=== PATIENT | male | born 1950 | race African-American/Black ===

== ENCOUNTER 2017-11-02 16:39 | Emergency (ER) | payer OTHER ==
[2017-11-02] MEDS ORDERED: ONDANSETRON 4 MG/2 ML VIAL ONE ×2 (18:12→21:21)
[2017-11-02] MEDS ORDERED: NA CHLORIDE 0.9% 500 ML ONE (18:12)
[2017-11-02 18:26] LABS: Absolute Lymphocytes (CBC) 0.7 K/uL (0.7-4.9); Absolute Monocytes 0.7 K/uL (0.1-1.3); Absolute Neutrophil 14.3 K/uL (1.8-8.0); Basophils % 0.2 % (0-1.3); Hematocrit 44.3 % (39.6-49.0); Lymphocytes % 4.2 % (15.3-44.8); MCH 31.5 pg (27.0-35.0); MCV 96.1 fL (80-100); MPV 9.3 fL (7.6-11.3); Monocytes % 4.4 % (3.3-12.3); RBC Red Blood Cell Count 4.61 M/uL (4.33-5.43)
[2017-11-02 18:28] LABS: Potassium 4.1 mEq/L (3.6-5.0)
[2017-11-02 18:35] LABS: Albumin 4.7 g/dL (3.2-5.5); Bilirubin Direct 0.1 mg/dL (0-0.2); Bilirubin Total 1.1 mg/dL (0.3-1.2); Protein, Total 7.9 g/dL (6.0-8.3)
[2017-11-02 20:05] LABS: Anisocytosis 1+; Blood Morphology Comment NOTED (NOT SEEN); Platelet Estimate ADEQ
--- NOTE | 2017-11-02 20:17 | RAD REPORT ---
EXAM DESCRIPTION: CT - Abdomen Pelvis W Contrast - 11/02/2017 8:00 pm CLINICAL HISTORY: Abdominal pain, nausea, vomiting, left lower quadrant pain COMPARISON: None. TECHNIQUE: Biphasic, helical CT imaging of the abdomen and pelvis was performed following 100 ml non -ionic IV contrast. Oral contrast was given. All CT scans are performed using dose optimization technique as appropriate and may include automated exposure control or mA/KV adjustment according to patient size. FINDINGS: No consolidation or mass. Interstitial markings are mildly prominent in the posterior gutt er on the right. A minimal interstitial edema or infiltrate would be possible. No pericardial thicken ing or effusion. Heart size is upper normal. Liver attenuation is mild fatty infiltration. No focal liver or spleen abnormality. No pancreatic or peripancreatic acute findings. Gallbladder and biliary tree are also without suspicious finding. Gall stones can be occult. Symmetric renal function is seen with no hydronephrosis or suspicious renal mass. No gastric dilatation or gastric wall thickening. No dilated small bowel loops. The appendix is jamee l. The patient has a mild to moderate dobson diverticulosis. Colon is mostly decompressed. This can obsc ure mild colitis findings. No measurable stranding in the adjacent fat. No free air, free fluid or i nflammatory stranding. No mass or bulky lymphadenopathy. Fat filled umbilical hernia is present. The urinary bladder is without significant finding. No adrenal abnormality. No acute or destructive bone process. IMPRESSION: Mild to moderate dobson diverticulosis. Mild mucosal level colitis or diverticulitis could be present. No extension into the adjacent fatty tissues identifiable. No free air or surgically emergent finding. Fatty infiltration of the liver.
[2017-11-02] MEDS ORDERED: METRONIDAZOLE 500mg IVPB 500 MG/100 ML BAG IV ONE (20:20)
[2017-11-02] MEDS ORDERED: CIPROFLOXACIN 400mg IV 400 MG/200 ML BAG IV ONE (20:20)
[2017-11-02] MEDS ORDERED: MEPERIDINE HCL 25 MG/0.5 ML ONE (21:21)
--- NOTE | 2017-11-02 21:21 | ER ---
Nurse's Notes [facility] Name: Zelalem Vizcaino Age: 67 yrs Sex: Male : 1950 Arrival Date: 11/02/2017 Time: 16:40 Bed 27 Private MD: Diagnosis: Diverticulitis of large intestine without perforation or abscess without bleeding Presentation: 11/02 17:08 Presenting complaint: Patient states: N/V and intermittent lower abdominal pain since hb this morning. Not tolerating liquids. Transition of care: patient was not received from another setting of care. Onset of symptoms was November 02, 2017. Initial Sepsis Screen: Does the patient meet any 2 criteria? No. Patient's initial sepsis screen is negative. Does the patient have a suspected source of infection? No. Patient's initial sepsis screen is negative. Care prior to arrival: None. 17:08 Method Of Arrival: Ambulatory 17:08 Acuity: COREY 3 hb Historical: - Allergies: 17:10 No Known Allergies; hb - Home Meds: 17:10 Allopurinol Oral [Active]; hb - PMHx: 17:10 Gout; hb - PSHx: 17:10 None; hb - Immunization history:: Adult Immunizations up to date. - Social history:: Smoking status: Patient/guardian denies using tobacco. - Family history:: not pertinent. - Hospitalizations: : No recent hospitalization is reported. Screenin:16 Abuse screen: Denies threats or abuse. Denies injuries from another. Nutritional aj screening: No deficits noted. Tuberculosis screening: No symptoms or risk factors identified. Fall Risk None identified. Assessment: 18:15 General: Appears in no apparent distress. uncomfortable, Behavior is calm, cooperative, aj appropriate for age. Pain: Complains of pain in right lower quadrant and left lower quadrant. Neuro: Level of Consciousness is awake, alert, obeys commands, Oriented to person, place, time, situation. Respiratory: Airway is patent Respiratory effort is even, unlabored, Respiratory pattern is regular, symmetrical. GI: Abdomen is non-distended, obese, Reports lower abdominal pain, diarrhea, nausea, vomiting. Derm: Skin is intact, is healthy with good turgor, Skin is pink, warm \T\ dry. normal. 21:45 Reassessment: Patient appears in no apparent distress at this time. Patient is alert, ed1 oriented x 3, equal unlabored respirations, skin warm/dry/pink. Patient states feeling better. Patient states symptoms have improved. Vital Signs: 17:09 BP 147 / 99; Pulse 86; Resp 18; Temp 98.9; Pulse Ox 100% on R/A; Weight 116.12 kg; hb Height 5 ft. 10 in. (177.80 cm); Pain 8/10; 20:15 BP 145 / 88; Pulse 72; Resp 17; Pulse Ox 93% on R/A; aj 21:17 BP 156 / 85; Pulse 79; Resp 17; Pulse Ox 95% on R/A; aj 17:09 Body Mass Index 36.73 (116.12 kg, 177.80 cm) hb ED Course: 16:40 Patient arrived in ED. al2 17:09 Triage completed. hb 17:10 Arm band placed on right wrist. hb 17:30 Kena Pizarro, RN is Primary Nurse. aj 17:36 Yunior Miner MD is Attending Physician. rn 18:16 Patient has correct armband on for positive identification. aj 18:16 Inserted saline lock: 22 gauge in right antecubital area, using aseptic technique. aj Blood collected. 20:00 CT Abd/Pelvis - W/Contrast In Process Unspecified. EDMS 20:01 CT completed. Patient tolerated procedure well. Patient moved to CT via stretcher. Patient moved back from CT. 21:45 Marta Bradshaw LVN is Primary Nurse. ed1 21:45 No provider procedures requiring assistance completed. IV discontinued, intact, ed1 bleeding controlled, No redness/swelling at site. Pressure dressing applied. Administered Medications: 18:14 Drug: Zofran 4 mg Route: IVP; Site: right antecubital; aj 18:15 Drug: NS 0.9% 500 ml Route: IV; Rate: bolus; Site: right antecubital; aj 20:24 Drug: Cipro 400 mg Volume: 200 ml; Route: IVPB; Infused Over: 60 mins; Site: right aj antecubital; 21:47 Follow up: Response: No adverse reaction; IV Status: Completed infusion ed1 20:24 Drug: Flagyl 500 mg Volume: 100 ml; Route: IVPB; Rate: 200 ml/hr; Infused Over: 30 aj mins; Site: right antecubital; 21:47 Follow up: Response: No adverse reaction; IV Status: Completed infusion ed1 21:30 Drug: Zofran 4 mg Route: IVP; Site: right antecubital; aj 21:47 Follow up: Response: No adverse reaction; Nausea is decreased ed1 21:31 Drug: Demerol 25 mg Route: IVP; Site: right antecubital; aj 21:46 Follow up: Response: No adverse reaction; Pain is decreased ed1 Outcome: 21:20 Discharge ordered by . rn 21:45 Discharged to home ambulatory, with family. ed1 21:45 Condition: good 21:45 Discharge instructions given to patient, Instructed on discharge instructions, follow up and referral plans. medication usage, Demonstrated understanding of instructions, follow-up care, medications, Prescriptions given X 4. 21:47 Patient left the ED. ed1 Signatures: Dispatcher [employer] EDKena Red RN RN aj Hagler, Ervin eh Nieto, Roman, MD MD rn Riggs, Erika, PATIENT COORDINATOR FRONT DESK PATIENT COORDINATOR FRONT DESK ed1 Lidia Gale RN RN hb Love, Angelica al2 Corrections: (The following items were deleted from the chart) 17:10 17:08 Presenting complaint: Patient states: N/V and lower abdominal pain since this hb morning. Not tolerating liquids. hb
--- NOTE | 2017-11-02 21:21 | EDPHYS ---
Physician Documentation [facility] Name: Zelalem Vizcaino Age: 67 yrs Sex: Male : 1950 Arrival Date: 11/02/2017 Time: 16:40 Bed 27 Private MD: ED Physician Yunior Miner HPI: 11/02 18:29 This 67 yrs old Black Male presents to ER via Ambulatory with complaints of rn Nausea/Vomiting/Diarrhea. 18:29 The patient presents to the emergency department with nausea, vomiting, diarrhea, rn abdominal pain, of the left lower quadrant. Onset: The symptoms/episode began/occurred this morning. Possible causes: unknown. Severity of symptoms: At their worst the symptoms were mild in the emergency department the symptoms are unchanged. The patient has not experienced similar symptoms in the past. The patient has not experienced similar symptoms in the past. The patient has not recently seen a physician. Historical: - Allergies: 17:10 No Known Allergies; hb - Home Meds: 17:10 Allopurinol Oral [Active]; hb - PMHx: 17:10 Gout; hb - PSHx: 17:10 None; hb - Immunization history:: Adult Immunizations up to date. - Social history:: Smoking status: Patient/guardian denies using tobacco. - Family history:: not pertinent. - Hospitalizations: : No recent hospitalization is reported. ROS: 18:29 Constitutional: Negative for fever, chills, and weight loss, Eyes: Negative for injury, rn pain, redness, and discharge, Neck: Negative for injury, pain, and swelling, Cardiovascular: Negative for chest pain, palpitations, and edema, Respiratory: Negative for shortness of breath, cough, wheezing, and pleuritic chest pain, Abdomen/GI: + abdominal pain/nausea/vomiting/diarrhea MS/Extremity: Negative for injury and deformity, Skin: Negative for injury, rash, and discoloration, Neuro: Negative for headache, weakness, numbness, tingling, and seizure. Exam: 18:29 Constitutional: This is a well developed, well nourished patient who is awake, alert, rn and in no acute distress. Head/Face: Normocephalic, atraumatic. Eyes: Pupils equal round and reactive to light, extra-ocular motions intact. Lids and lashes normal. Conjunctiva and sclera are non-icteric and not injected. Cornea within normal limits. Periorbital areas with no swelling, redness, or edema. ENT: dry MM Neck: Trachea midline, no thyromegaly or masses palpated, and no cervical lymphadenopathy. Supple, full range of motion without nuchal rigidity, or vertebral point tenderness. No Meningismus. Cardiovascular: Regular rate and rhythm with a normal S1 and S2. No gallops, murmurs, or rubs. Normal PMI, no JVD. No pulse deficits. Respiratory: Lungs have equal breath sounds bilaterally, clear to auscultation and percussion. No rales, rhonchi or wheezes noted. No increased work of breathing, no retractions or nasal flaring. Abdomen/GI: soft, mild lower abd tenderness including suprapubic and LLQ, no rebound MS/ Extremity: Pulses equal, no cyanosis. Neurovascular intact. Full, normal range of motion. Equal circumference. Neuro: Awake and alert, GCS 15, oriented to person, place, time, and situation. Cranial nerves II-XII grossly intact. Motor strength 5/5 in all extremities. Sensory grossly intact. Vital Signs: 17:09 BP 147 / 99; Pulse 86; Resp 18; Temp 98.9; Pulse Ox 100% on R/A; Weight 116.12 kg; hb Height 5 ft. 10 in. (177.80 cm); Pain 8/10; 20:15 BP 145 / 88; Pulse 72; Resp 17; Pulse Ox 93% on R/A; aj 21:17 BP 156 / 85; Pulse 79; Resp 17; Pulse Ox 95% on R/A; aj 17:09 Body Mass Index 36.73 (116.12 kg, 177.80 cm) hb MDM: 17:36 Patient medically screened. rn 21:19 Differential diagnosis: Nonspecific abd pain, diverticulitis, viral gastroenteritis, rn gastroenteritis. Data reviewed: vital signs, nurses notes, lab test result(s), radiologic studies, CT scan, and as a result, I will discharge patient. Counseling: I had a detailed discussion with the patient and/or guardian regarding: the historical points, exam findings, and any diagnostic results supporting the discharge/admit diagnosis, lab results, radiology results, the need for outpatient follow up, to return to the emergency department if symptoms worsen or persist or if there are any questions or concerns that arise at home. Response to treatment: the patient's symptoms have markedly improved after treatment, and as a result, I will discharge patient. Special discussion: I discussed with the patient/guardian in detail that at this point there is no indication for admission to the hospital. It is understood, however, that if the symptoms persist or worsen the patient needs to return immediately for re-evaluation. ED course: Pt with mild diverticulitis, offered observation given first episode, patient chooses to go home, will dc home with abx, zofran, pain meds. Return precautions given and understood.. 11/02 17:46 Order name: Basic Metabolic Panel; Complete Time: 19:08 rn 11/02 17:46 Order name: CBC with Diff; Complete Time: 20:12 rn 11/02 17:46 Order name: Creatinine for Radiology; Complete Time: 19:08 rn 11/02 17:46 Order name: Hepatic Function; Complete Time: 19:08 rn 11/02 17:46 Order name: Lipase; Complete Time: 19:08 rn 11/02 18:29 Order name: Manual Differential; Complete Time: 20:12 EDWI 11/02 17:46 Order name: IV Saline Lock; Complete Time: 18:08 rn 11/02 17:46 Order name: CT Abd/Pelvis - W/Contrast; Complete Time: 20:22 rn 11/02 17:46 Order name: Labs collected and sent; Complete Time: 18:08 rn Administered Medications: 18:14 Drug: Zofran 4 mg Route: IVP; Site: right antecubital; aj 18:15 Drug: NS 0.9% 500 ml Route: IV; Rate: bolus; Site: right antecubital; aj 20:24 Drug: Cipro 400 mg Volume: 200 ml; Route: IVPB; Infused Over: 60 mins; Site: right aj antecubital; 21:47 Follow up: Response: No adverse reaction; IV Status: Completed infusion ed1 20:24 Drug: Flagyl 500 mg Volume: 100 ml; Route: IVPB; Rate: 200 ml/hr; Infused Over: 30 aj mins; Site: right antecubital; 21:47 Follow up: Response: No adverse reaction; IV Status: Completed infusion ed1 21:30 Drug: Zofran 4 mg Route: IVP; Site: right antecubital; aj 21:47 Follow up: Response: No adverse reaction; Nausea is decreased ed1 21:31 Drug: Demerol 25 mg Route: IVP; Site: right antecubital; 21:46 Follow up: Response: No adverse reaction; Pain is decreased ed1 Disposition: 11/02/17 21:20 Discharged to Home. Impression: Diverticulitis of large intestine without perforation or abscess without bleeding. - Condition is Stable. - Discharge Instructions: Diverticulitis. - Prescriptions for Zofran ODT 4 mg Oral tablet,disintegrating - place 1 tablet by TRANSLINGUAL route every 8 hours As needed; 20 tablet. Flagyl 500 mg Oral Tablet - take 1 tablet by ORAL route every 8 hours for 10 days; 30 tablet. Tylenol- Codeine #3 300-30 mg Oral Tablet - take 1 tablet by ORAL route every 6 hours As needed; 15 tablet. Cipro 500 mg Oral Tablet - take 1 tablet by ORAL route every 12 hours for 10 days; 2 tablet. - Medication Reconciliation Form, Thank You Letter, Antibiotic Education, Prescription Opioid Use form. - Follow up: Private Physician; When: As needed; Reason: Recheck today's complaints, Re-evaluation by your physician. - Problem is new. - Symptoms have improved. Signatures: Dispatcher [employer] EDMS Kena Pizarro RN RN Yunior Miner MD MD rn Riggs, Erika, LVN MINING HELPER ed1 Lidia Gale RN RN Corrections: (The following items were deleted from the chart) 21:47 21:20 11/02/2017 21:20 Discharged to Home. Impression: Diverticulitis of large ed1 intestine without perforation or abscess without bleeding. Condition is Stable. Forms are Medication Reconciliation Form, Thank You Letter, Antibiotic Education, Prescription Opioid Use. Follow up: Private Physician; When: As needed; Reason: Recheck today's complaints, Re-evaluation by your physician. Problem is new. Symptoms have improved. rn
== END 2017-11-02 21:47 | disposition home or self-care (01) ==
LOC: ER 16:39
DX: K57.32 Diverticulitis of large intestine without perforation or abscess without bleeding (principal)
CPT/HCPCS: 36415; 74177; 80048; 80076; 83690; 85025; J0744; J2175; J2405 ×2; Q9967; 96365; 96368; 96375; 99284

== ENCOUNTER 2017-11-10 09:36 | Emergency (ER) | payer OTHER ==
[2017-11-10] MEDS ORDERED: NA CHLORIDE 0.9% 1,000 ML ONE (10:36)
[2017-11-10] MEDS ORDERED: ONDANSETRON 4 MG/2 ML VIAL ONE (10:36)
[2017-11-10 10:54] LABS: Absolute Lymphocytes (CBC) 0.7 K/uL (0.7-4.9); Absolute Monocytes 0.4 K/uL (0.1-1.3); Absolute Neutrophil 6.7 K/uL (1.8-8.0); Basophils % 0.2 % (0-1.3); Eosinophils % 0.9 % (0-4.4); Hematocrit 43.7 % (39.6-49.0); Lymphocytes % 9.3 % (15.3-44.8); MCH 31.9 pg (27.0-35.0); MCV 94.3 fL (80-100); MPV 9.3 fL (7.6-11.3); Monocytes % 5.2 % (3.3-12.3); RBC Red Blood Cell Count 4.64 M/uL (4.33-5.43)
[2017-11-10 11:15] LABS: Potassium 3.7 mEq/L (3.6-5.0)
[2017-11-10 11:21] LABS: Albumin 4.2 g/dL (3.2-5.5); Bilirubin Direct 0.1 mg/dL (0-0.2); Bilirubin Total 0.5 mg/dL (0.3-1.2); Protein, Total 7.4 g/dL (6.0-8.3)
--- NOTE | 2017-11-10 11:53 | ER ---
Nurse's Notes [facility] Name: Zelalem Vizcaino Age: 67 yrs Sex: Male : 1950 Arrival Date: 11/10/2017 Time: 09:40 Bed 20 Private MD: SUPRIYA BEAN Diagnosis: Nausea and vomiting Presentation: 11/10 09:57 Presenting complaint: Patient states: pt says last Thursday dx with diverticulitis, week tw2 progressed, off liquids, at sausage this morning and made me nauseous. Transition of care: patient was not received from another setting of care. Onset of symptoms was November 10, 2017. Risk Assessment: Do you want to hurt yourself or someone else? Patient reports no desire to harm self or others. Initial Sepsis Screen: Does the patient meet any 2 criteria? No. Patient's initial sepsis screen is negative. Does the patient have a suspected source of infection? No. Patient's initial sepsis screen is negative. Care prior to arrival: None. 09:57 Method Of Arrival: Ambulatory tw 09:57 Acuity: COREY 3 tw2 Historical: - Allergies: 09:59 No Known Allergies; tw2 - Home Meds: 09:59 Allopurinol Oral [Active]; tw2 - PMHx: 09:59 Gout; tw2 - PSHx: 09:59 None; tw2 - Immunization history:: Adult Immunizations up to date. - Social history:: Smoking status: Patient/guardian denies using tobacco. Screenin:50 Abuse screen: Denies threats or abuse. Nutritional screening: No deficits noted. em Tuberculosis screening: No symptoms or risk factors identified. Fall Risk None identified. Assessment: 10:26 General: Appears in no apparent distress. uncomfortable, Behavior is calm, cooperative. em Pain: Denies pain. Neuro: Level of Consciousness is awake, alert, obeys commands, Oriented to person, place, time, situation, Speech is normal, Reports dizziness, Denies weakness. Cardiovascular: Capillary refill < 3 seconds Patient's skin is warm and dry. Respiratory: Airway is patent Respiratory effort is even, unlabored, Respiratory pattern is regular, symmetrical. GI: Abdomen is round non-distended, Pt is actively vomiting clear fluid, Bowel sounds present X 4 quads. Reports nausea, vomiting. Derm: Skin is intact, Skin is pink, warm \T\ dry. Musculoskeletal: Range of motion: intact in all extremities. 10:45 Reassessment: Patient appears in no apparent distress at this time. I agree with above iw assessment by Henri Howe LVN. 11:20 Reassessment: Patient appears in no apparent distress at this time. Patient and/or em family updated on plan of care and expected duration. Pain level reassessed. Patient is alert, oriented x 3, equal unlabored respirations, skin warm/dry/pink. Patient states feeling better. Patient states symptoms have improved. Vital Signs: 09:58 BP 145 / 94; Pulse 78; Resp 17; Temp 97.7(O); Pulse Ox 97% on R/A; Weight 108.86 kg tw2 (R); Height 5 ft. 10 in. (177.80 cm); Pain 0/10; 10:49 BP 131 / 82; Pulse 76; Resp 16; Pulse Ox 95% on R/A; Pain 0/10; em 11:30 BP 123 / 63; Pulse 70; Resp 16; Pulse Ox 99% on R/A; em 09:58 Body Mass Index 34.44 (108.86 kg, 177.80 cm) tw2 ED Course: 09:40 Patient arrived in ED. rg4 09:40 SUPRIYA BEAN is Private Physician. rg4 09:58 Triage completed. tw2 09:58 Arm band placed on. tw2 10:00 Shirley Stephenson FNP-C [facility]. kb 10:00 Yunior Miner MD is Attending Physician. kb 10:05 Henri Howe LVN is Primary Nurse. em 10:40 No provider procedures requiring assistance completed. Initial lab(s) drawn, by me, em sent to lab. Inserted saline lock: 20 gauge in right antecubital area, using aseptic technique. Blood collected. 10:50 Patient has correct armband on for positive identification. Placed in gown. Bed in low em position. Call light in reach. Side rails up X2. 12:14 IV discontinued, intact, bleeding controlled, No redness/swelling at site. Pressure em dressing applied. Administered Medications: 10:44 Drug: Zofran 4 mg Route: IVP; Site: right antecubital; iw 11:55 Follow up: Response: No adverse reaction; Nausea is decreased em 10:45 Drug: NS 0.9% 1000 ml Route: IV; Rate: 1000 ml; Site: right antecubital; em 12:04 Follow up: IV Status: Completed infusion; IV Intake: 1000ml em Intake: 12:04 IV: 1000ml; Total: 1000ml. em Outcome: 11:52 Discharge ordered by . kb 12:14 Discharged to home ambulatory. em 12:14 Condition: good 12:14 Discharge instructions given to patient, Instructed on discharge instructions, follow up and referral plans. Demonstrated understanding of instructions, follow-up care. 12:14 Patient left the ED. em Signatures: Shirley Stephenson, CONTACT LENS TECHNICIAN-C CONTACT LENS TECHNICIAN-Ckb Henri Howe, SHIELD CLEANER SHIELD CLEANER em Lilly Norman, RN RN iw Noy Marrero RN RN tw2 Lindsey Hernandez rg4
--- NOTE | 2017-11-10 11:53 | EDPHYS ---
Physician Documentation [facility] Name: Zelalem Vizcaino Age: 67 yrs Sex: Male : 1950 Arrival Date: 11/10/2017 Time: 09:40 Bed 20 Private MD: SUPRIYA BEAN ED Physician Yunior Miner HPI: 11/10 10:58 This 67 yrs old Black Male presents to ER via Ambulatory with complaints of Nausea. kb 10:58 The patient presents to the emergency department with nausea, vomiting. Onset: The kb symptoms/episode began/occurred this morning. Possible causes: "ate the wrong food". The symptoms are aggravated by nothing. The symptoms are alleviated by nothing. Associated signs and symptoms: Pertinent positives: nausea, vomiting. Severity of symptoms: At their worst the symptoms were mild in the emergency department the symptoms are unchanged. The patient has experienced similar episodes in the past, a few times. The patient has been recently seen at the [facility] Emergency Department, last week, for similar complaints labs were performed, CT scan was performed, was given a prescription for antibiotics, was given a prescription for pain medications, was given a prescription for an antiemetic. Pt states he was seen for abd pain last week, diagnosed with diverticulitis and given antibiotics. States he was supposed to be on a liquid diet and followed that for a while, but this morning ate sausage and it caused him to vomit one time. Denies pain. Historical: - Allergies: 09:59 No Known Allergies; tw2 - Home Meds: 09:59 Allopurinol Oral [Active]; tw2 - PMHx: 09:59 Gout; tw2 - PSHx: :59 None; tw2 - Immunization history:: Adult Immunizations up to date. - Social history:: Smoking status: Patient/guardian denies using tobacco. ROS: 10:58 Constitutional: Negative for fever, chills, and weight loss, Neck: Negative for injury, kb pain, and swelling, Cardiovascular: Negative for chest pain, palpitations, and edema, Respiratory: Negative for shortness of breath, cough, wheezing, and pleuritic chest pain, Back: Negative for injury and pain, MS/Extremity: Negative for injury and deformity, Skin: Negative for injury, rash, and discoloration, Neuro: Negative for headache, weakness, numbness, tingling, and seizure. 10:58 Abdomen/GI: Positive for nausea and vomiting, Negative for abdominal pain, diarrhea, constipation, abdominal cramps, abdominal distension, anorexia. Exam: 10:58 Constitutional: This is a well developed, well nourished patient who is awake, alert, kb and in no acute distress. Head/Face: Normocephalic, atraumatic. ENT: Nares patent. No nasal discharge, no septal abnormalities noted. Tympanic membranes are normal and external auditory canals are clear. Oropharynx with no redness, swelling, or masses, exudates, or evidence of obstruction, uvula midline. Mucous membranes moist. Neck: Trachea midline, no thyromegaly or masses palpated, and no cervical lymphadenopathy. Supple, full range of motion without nuchal rigidity, or vertebral point tenderness. No Meningismus. Chest/axilla: Normal chest wall appearance and motion. Nontender with no deformity. No lesions are appreciated. Cardiovascular: Regular rate and rhythm with a normal S1 and S2. No gallops, murmurs, or rubs. Normal PMI, no JVD. No pulse deficits. Respiratory: Lungs have equal breath sounds bilaterally, clear to auscultation and percussion. No rales, rhonchi or wheezes noted. No increased work of breathing, no retractions or nasal flaring. Abdomen/GI: Soft, non-tender, with normal bowel sounds. No distension or tympany. No guarding or rebound. No evidence of tenderness throughout. Skin: Warm, dry with normal turgor. Normal color with no rashes, no lesions, and no evidence of cellulitis. MS/ Extremity: Pulses equal, no cyanosis. Neurovascular intact. Full, normal range of motion. Neuro: Awake and alert, GCS 15, oriented to person, place, time, and situation. Cranial nerves II-XII grossly intact. Motor strength 5/5 in all extremities. Sensory grossly intact. Cerebellar exam normal. Normal gait. Vital Signs: 09:58 BP 145 / 94; Pulse 78; Resp 17; Temp 97.7(O); Pulse Ox 97% on R/A; Weight 108.86 kg tw2 (R); Height 5 ft. 10 in. (177.80 cm); Pain 0/10; 10:49 BP 131 / 82; Pulse 76; Resp 16; Pulse Ox 95% on R/A; Pain 0/10; em 11:30 BP 123 / 63; Pulse 70; Resp 16; Pulse Ox 99% on R/A; em 09:58 Body Mass Index 34.44 (108.86 kg, 177.80 cm) tw2 MDM: 10:00 Patient medically screened. kb 10:58 Data reviewed: vital signs, nurses notes. Data interpreted: Pulse oximetry: on room air kb is 95 %. Interpretation: normal. 11:51 Counseling: I had a detailed discussion with the patient and/or guardian regarding: the kb historical points, exam findings, and any diagnostic results supporting the discharge/admit diagnosis, lab results, the need for outpatient follow up, a family practitioner, a qa reviewer, to return to the emergency department if symptoms worsen or persist or if there are any questions or concerns that arise at home. ED course: Pt states he feels better. Has not had any abd pain since last week. Educated on bland diet and advancing as tolerated, as well as, following up with GI. Verbal understanding received.. 11/10 10:16 Order name: Amylase, Serum; Complete Time: 11:22 kb 11/10 10:16 Order name: Basic Metabolic Panel; Complete Time: 11:22 kb 11/10 10:16 Order name: CBC with Diff; Complete Time: 10:57 kb 11/10 10:16 Order name: Hepatic Function; Complete Time: 11:22 kb 11/10 10:16 Order name: Lipase; Complete Time: 11:22 kb 11/10 10:16 Order name: IV Saline Lock; Complete Time: 10:45 kb 11/10 10:16 Order name: Labs collected and sent; Complete Time: 10:45 kb Administered Medications: 10:44 Drug: Zofran 4 mg Route: IVP; Site: right antecubital; iw 11:55 Follow up: Response: No adverse reaction; Nausea is decreased em 10:45 Drug: NS 0.9% 1000 ml Route: IV; Rate: 1000 ml; Site: right antecubital; em 12:04 Follow up: IV Status: Completed infusion; IV Intake: 1000ml em Disposition: 13:42 Co-signature as Attending Physician, Yunior Miner MD. rn Disposition: 11/10/17 11:52 Discharged to Home. Impression: Nausea and vomiting. - Condition is Stable. - Discharge Instructions: Nausea and Vomiting, [id number]. - Medication Reconciliation Form, Thank You Letter, Antibiotic Education, Prescription Opioid Use form. - Follow up: Private Physician; When: 2 - 3 days; Reason: Recheck today's complaints, Continuance of care, Re-evaluation by your physician. Follow up: Emergency Department; When: As needed; Reason: Worsening of condition. Signatures: Dispatcher [employer] EDAR Shirley Stephenson, CVT RN-C CVT RN-Ckb Henri Howe, CHANNEL CEMENTER CHANNEL CEMENTER em Lilly Norman, RN RN Yunior Chin MD MD rn Noy Marrero RN RN tw2 Corrections: (The following items were deleted from the chart) 11:55 10:16 Urine Dipstick-Ancillary ordered. kb em 12:14 11:52 11/10/2017 11:52 Discharged to Home. Impression: Nausea and vomiting. Condition em is Stable. Forms are Medication Reconciliation Form, Thank You Letter, Antibiotic Education, Prescription Opioid Use. Follow up: Private Physician; When: 2 - 3 days; Reason: Recheck today's complaints, Continuance of care, Re-evaluation by your physician. Follow up: Emergency Department; When: As needed; Reason: Worsening of condition. kb
== END 2017-11-10 12:14 | disposition home or self-care (01) ==
LOC: ER 09:36
DX: R11.2 Nausea with vomiting, unspecified (principal)
CPT/HCPCS: 36415; 80048; 80076; 82150; 83690; 85025; 96361; 96374; 99283; J2405; J7030

== ENCOUNTER → 2024-09-27 | Day surgery (SDC) | payer OTHER ==
[2024-09-13 10:29] LABS: PT Prothrombin Time 11.3 SECONDS (10-13.0); Protime INR 0.99
[~2024-09-27] MED LIST: CODEINE 30MG/APAP 300MG TAB PO PRN; EPHEDRINE SULF 50 MG/ML VIAL ONE; FENTANYL CITR 100 MCG/2 ML ONE; KETOROLAC 30 MG/ML INJ ONE; LIDOCAINE 1% MPF 5 ML VIAL ONE; ONDANSETRON 4 MG/2 ML VIAL ONE; propofoL 200 MG/20 ML VIAL IV ONE
[2024-09-27] MEDS: NA CHLORIDE 0.9% 1,000 ML ONE (07:00)
[2024-09-27] MEDS: CEFAZOLIN SODIUM 2 GM/VIAL ONE (07:40)
[2024-09-27] MEDS: CIPROFLOXACIN 400mg IV 400 MG/200 ML BAG IV ONE (09:25)
[2024-09-27 09:39] VITALS: BP 148/75; TEMP 97.1; O2SAT 96
--- NOTE | 2024-09-27 16:13 | P.OP ---
Date of Service: 09/27/24 Preoperative diagnoses: High risk, grade group 5, cT3a at the left apex, prostate cancer Postoperative diagnoses: High risk, grade group 5, cT3a at the left apex, prostate cancer Principal procedures: Transrectal ultrasound-guided insertion of 2 fiducial markers intra prostatic Transrectal ultrasound-guided attempted but failed SpaceOAR gel insertion Indication for procedure: Mr. Vizcaino is a 74-year-old gentleman who was diagnosed with high risk high- grade prostate cancer with extraprostatic extension clinically suspected ass ociated with a palpable nodule in the apical region on the left. He was counseled and ultimately elected to proceed with definitive therapy via radiation, and he is being treated with advanced androgen deprivation therapy with abiraterone and prednisone via medical oncology. Desire for fiducial markers to guide radiation and SpaceOAR gel to decrease rectal toxicity was expressed by radiation oncology. Procedure note: The patient was consented in the preoperative holding area before being transferred to the operative suite where general anesthesia was induced. He was given Ancef 2 g IV antimicrobial prophylaxis, and pneumoboots were provided for DVT prophylaxis. He was placed in the high lithotomy position, padded and secured to the table appropriately. His genitalia was elevated out of the perineal region using an Ioban drape. Transrectal ultrasound probe was placed freehand via his anus into his rectum with ease, and the prostate was visualized in axial and sagittal dimensions and a stepper device to hold the ultrasound probe in place was used. I ensured I was able to visualize the prostate in both axial and sagittal dimensions from the apex all the way through to the bladder neck and into the perineal region accordingly. The case was begun using a fiducial marker insertion needle targeting the lateral aspect of the patient's left Duc prostate in the mid gland region. I placed a fiducial marker on in that location and then turned my attention to the right side where I placed a marker in the contralateral position in the mid gland on the right successfully. Once this was done, I then turned the scope back to the midline visualizing the urethra. As had been noted on initial ultrasonographic assessment, there did appear to be obliteration of the prerectal fat plane within the apical mid gland in the midline, in the region necessary to place the SpaceOAR insertion needle. The usual Rajiv observed white stripe of fat was present in the mid base portion of the prostate but was not visible at the apex. However I did attempt to place the needle over the rectal hump and tried and navigated through and into the prerectal fat pad at the mid base region, which I was able to do. However once in that location, I aspirated via the syringe with no blood or succus obtained, but when I injected a bolus of 0.5 to 1 cc of saline, it did not disperse as desired in the prerectal fat plane. Instead, it seemed to inject into what was likely the rectal wall, which was not the desired location. Attempts to reposition the needle into a more desired location was performed, but by this point, the portion of the prerectal fat plane that was visible was now essentially no longer visible; so I did not feel it is safe to go ahead and inject the SpaceOAR gel. As a result, I remove the needle and aborted the SpaceOAR gel insertion of the components. The patient was taken out of the lithotomy position, awakened from general anesthesia before being transferred to a stretcher, and then transferred to the recovery room in good condition. In the recovery room, I verified that his rectal swab fluoroquinolone resistance testing done in preparation of his prostate biopsy did in fact reveal fluoroquinolone sensitive bacteria, and I gave him Cipro 400 mg IV for added antimicrobial prophylaxis. Complications: None Discharge disposition: I discharged him with a prescription for an additional 3 days of ciprofloxacin given the potential involvement of the rectum with the prerectal fat space. I also spoke to the radiation oncologist informing him that we were unable to place the SpaceOAR gel because of obliteration of the fat plane. Subsequent follow-up should be established with me about 3 to 6 months after he completes radiation, likely in about 6 to 9 months.
== END | disposition home or self-care (01) ==
LOC: OR 06:24
PROVIDERS: ATTEND Urology
PROC: 0VH43YZ Insertion of Other Device into Prostate and Seminal Vesicles, Percutaneous Approach (ICD-10-PCS; principal; 2024-09-27 07:30)
DX: C61 Malignant neoplasm of prostate (principal)
CPT/HCPCS: 87088; 87086; 36415; 85610; 82947 ×2; 55874; J2704; J2003; J3010; J2405; J7030; C1889